=== PATIENT | female | born 1980 | race Caucasian/White ===

== ENCOUNTER 2017-01-17 15:51 | Emergency (ER) | payer MEDICAID ==
[~2017-01-17] VITALS: Ht 167.6 cm; Wt 105.9 kg
[~2017-01-17 15:51] MED LIST: METO200T3 PO
[2017-01-17] MEDS ORDERED: MORPHINE SULFATE 4 MG/ML, 1ML IVPush PRN (16:30)
[2017-01-17] MEDS ORDERED: KETOROLAC 30 MG/1 ML IVPush ONE (16:30)
[2017-01-17] MEDS ORDERED: ONDANSETRON 2MG/ML, 2ML IVPush ONE (16:30)
[2017-01-17] MEDS ORDERED: MORPHINE SULFATE 4 MG/ML, 1ML ONE (16:37)
[2017-01-17] MEDS ORDERED: KETOROLAC 30 MG/1 ML ONE (16:38)
[2017-01-17] MEDS ORDERED: ONDANSETRON 2MG/ML, 2ML ONE (16:38)
[2017-01-17] MEDS ORDERED: LEVO75TA5 PO (16:43)
[2017-01-17] MEDS ORDERED: LORA10TA62 PO (16:43)
[2017-01-17] MEDS ORDERED: HYDR25TA6 PO (16:43)
[2017-01-17] MEDS ORDERED: LOSA50TA6 PO (16:43)
[2017-01-17 16:48] LABS: PATH.CAST-FLAG NOT PRESENT; SPERM-FLAG NOT PRESENT; SRC-FLAG NOT PRESENT; XTAL-FLAG NOT PRESENT; YLC-FLAG NOT PRESENT
[2017-01-17 17:09] VITALS: BP 138/92
== END 2017-01-17 17:29 | disposition home or self-care (01) ==
LOC: ED 17:23
DX: S33.9XXA Sprain of unspecified parts of lumbar spine and pelvis, initial encounter (principal); I10 Essential (primary) hypertension; E03.9 Hypothyroidism, unspecified; X58.XXXA Exposure to other specified factors, initial encounter; Y93.89 Activity, other specified; Y99.8 Other external cause status; Y92.89 Other specified places as the place of occurrence of the external cause
CPT/HCPCS: 74176; 81001; 96374; 96375; 99285; J1885; J2405

== ENCOUNTER 2017-04-20 16:05 | Emergency (ER) | payer MEDICAID ==
[~2017-04-20] VITALS: Ht 167.6 cm; Wt 106.7 kg
[~2017-04-20 16:05] MED LIST changes: +HYDR25TA6 PO; +LEVO75TA5 PO; +LORA10TA62 PO; +LOSA50TA6 PO; -METO200T3 PO; +METO200T5 PO
[2017-04-20 16:11] VITALS: BP 157/115
[2017-04-20] MEDS ORDERED: SODIUM CHLORIDE FLUSH 10ML SYR IVF ONE (17:30)
== END 2017-04-20 19:57 | disposition left against medical advice (07) ==
LOC: ED 19:51
DX: R30.0 Dysuria (principal); R10.9 Unspecified abdominal pain
CPT/HCPCS: 81001; 87077; 87086; 87186; 99284

== ENCOUNTER 2017-12-22 11:19 | Emergency (ER) | payer MEDICAID ==
[~2017-12-22] VITALS: Ht 167.6 cm; Wt 115.0 kg
[~2017-12-22 11:19] MED LIST changes: +METO200T47 PO; -METO200T5 PO
[2017-12-22 12:12] LABS: BASOPHILS # (AUTO) 0.05 x10^3/uL (0-0.1); BASOPHILS % (AUTO) 0 % (0-1); EOSINOPHILS # (AUTO) 0.18 x10^3/uL (0-0.4); EOSINOPHILS % (AUTO) 2 % (1-7); LYMPHOCYTES # (AUTO) 3.01 x10^3/uL (1-3.4); LYMPHOCYTES % (AUTO) 25 % (22-44); MD NO; MEAN CORPUSCULAR HEMOGLOBIN 28.5 pg (27.0-34.8); MEAN PLATELET VOLUME 9.8 fL (7.4-10.4); MONOCYTES # (AUTO) 0.79 x10^3/uL (0.2-0.8); MONOCYTES % (AUTO) 7 % (2-9); NEUTROPHILS # (AUTO) 8.17 x10^3/uL (1.8-6.8); NEUTROPHILS % (AUTO) 67 % (42-75); PLATELET COUNT 293 x10^3/uL (130-400); RED CELL DISTRIBUTION WIDTH 13.8 % (9.6-15.2)
[2017-12-22 12:23] LABS: ALANINE AMINOTRANSFERASE 45 U/L (12-78); ALBUMIN 3.4 g/dL (3.4-5.0); ANION GAP 11 mmol/L (5-15); CALCIUM 8.5 mg/dL (8.5-10.1); CHLORIDE 107 mmol/L (98-107); CREATININE 0.99 mg/dL (0.55-1.02)
[2017-12-22 12:28] LABS: ALKALINE PHOSPHATASE 63 U/L (45-117); BILIRUBIN,TOTAL 0.2 mg/dL (0.2-1.0); TOTAL PROTEIN 7.4 g/dL (6.4-8.2)
[2017-12-22 12:57] LABS: MICROSCOPIC INDICATED
[2017-12-22 13:08] LABS: CULTURE INDICATED? YES
[2017-12-22] MEDS ORDERED: KETOROLAC 30 MG/1 ML ONE (13:59)
[2017-12-22] MEDS ORDERED: KETOROLAC 60 MG/2 ML IM ONE (14:00)
[2017-12-22 15:48] VITALS: BP 150/77
== END 2017-12-22 15:50 | disposition home or self-care (01) ==
LOC: ED 13:43
DX: S39.012A Strain of muscle, fascia and tendon of lower back, initial encounter (principal); M51.26 Other intervertebral disc displacement, lumbar region; R05 Cough; I10 Essential (primary) hypertension; X58.XXXA Exposure to other specified factors, initial encounter; Y93.89 Activity, other specified; Y92.89 Other specified places as the place of occurrence of the external cause; Y99.8 Other external cause status
CPT/HCPCS: 36415; 71045; 74176; 80053; 81001; 83690; 84703; 85025; 87086; 96372; 99285; J1885

== ENCOUNTER 2019-01-14 14:13 | Emergency (ER) | payer MEDICAID ==
[~2019-01-14] VITALS: Ht 167.6 cm; Wt 128.7 kg
[2019-01-14 15:51] VITALS: BP 167/86
== END 2019-01-14 17:47 | disposition home or self-care (01) ==
LOC: ED 14:39
DX: R10.30 Lower abdominal pain, unspecified (principal); E03.9 Hypothyroidism, unspecified; I10 Essential (primary) hypertension
CPT/HCPCS: 36415; 74177; 80048; 81001; 82040; 84703; 85025; 99284; Q9967

== ENCOUNTER 2019-08-31 14:29 | Emergency (ER) | payer MEDICAID ==
[~2019-08-31] VITALS: Ht 167.6 cm; Wt 120.0 kg
[~2019-08-31 14:29] MED LIST changes: +LOSA50TA14 PO; -LOSA50TA6 PO
[2019-08-31 14:36] VITALS: BP 195/129
--- NOTE | 2019-08-31 15:01 | NUR ---
PT AMBULATED TO ROOM 38 PER PEDIS. PT C/O OCCASIONAL COUGH, BUT NEEDS TO HAVE THE COVID19 TEST BEFORE SHE CAN GET A MOTEL ROOM. TRIAGE BLOOD PRESSURE WAS 189/112, MD NOTIFED. MD IN TO SEE PATIENT. [employer] APPRENTICE PERFORMED. WILL AWAIT DISCHARGE INSTRUCTIONS.
--- NOTE | 2019-08-31 15:02 | NUR ---
PT UP FOR DISCHARGE. MD AGAIN INFORMED OF HIGH READING ON BP, AND RN WAS TOLD HE WAS SENDING HER HOME WITH PRESCRIPTIONS, AND SHE WOULD BE FINE. COVID 19 TESTING DONE.
--- NOTE | 2019-08-31 15:11 | NUR ---
RN IN WITH DISCHARGE INSTRUCTIONS. PT UPSET, STATES "I'M LEAVING ALREADY, DO YOU KNOW HOW LONG IT TOOK ME TO WALK HERE? HE DIDN'T LOOK AT MY THROAT OR MY EYES. WHAT AM I SUPPOSED TO DO ABOUT MY SORE THROAT, AND THE PAIN IN MY EYE?" RN INFORME PATIENT THAT MD DID LOOK AT THROAT, SUGGESTED OTC SPRAYS AND DROPS. PT INSTRUCTED TO USE REFRESH OR VISINE FOR HER EYE. RN DOES GO SPEAK TO MD ABOUT PATIENT NOT WANTING TO LEAVE. NO CHANGE TO POC, PT TO BE DISCHARGED WITH THE 3 PRESCRIPTIONS GIVEN AND THE OTC RECCOMENDATIONS. RN ATTEMPTED TO TAKE BLOOD PRESSURE PRIOR TO PATIENT LEAVING, BUT PT WOULD NOT LEAVE BLOOD PRESSURE CUFF ON, AND WOULD NOT HOLD STILL. UNABLE TO GET A READING PRIOR TO PATIENT LEAVING. PT AMBULATED OUT OF ED PER PEDIS.
== END 2019-08-31 15:18 | disposition home or self-care (01) ==
LOC: ED 14:45
DX: J37.0 Chronic laryngitis (principal); Z20.828 Contact with and (suspected) exposure to other viral communicable diseases; B97.89 Other viral agents as the cause of diseases classified elsewhere; I10 Essential (primary) hypertension
CPT/HCPCS: 99283